=== PATIENT | male | born 1950 | race African-American/Black ===

== ENCOUNTER → 2016-11-10 | Outpatient (CLI) | payer OTHER, MEDICAID ==
[~2016-11-10] MED LIST: ASPI81TA2 PO; DOCU250C91 PO; FENO135C4 PO; FINA5TAB41 PO; LISI-622 PO; MELO-273 PO; METF500T4 PO; MOME17N NASAL; TRAM50TA4 PO; VITAD1000 PO
== END | disposition home or self-care (01) ==
LOC: RADPV 11:32
PROVIDERS: ATTEND Specialist
DX: M25.512 Pain in left shoulder (principal)

== ENCOUNTER 2017-04-30 10:41 | Emergency (ER) | payer OTHER, MEDICAID ==
[~2017-04-30] VITALS: Ht 188 cm; Wt 93.5 kg
[2017-04-30 10:48] VITALS: BP 130/87
[2017-04-30 10:57] LABS: GLUCOSE,POINT OF CARE 109 MG/DL (70-110)
== END 2017-04-30 12:26 | disposition home or self-care (01) ==
LOC: EMS 10:43
DX: L30.9 Dermatitis, unspecified (principal); R79.89 Other specified abnormal findings of blood chemistry; B19.20 Unspecified viral hepatitis C without hepatic coma; E11.9 Type 2 diabetes mellitus without complications; G89.29 Other chronic pain; F17.210 Nicotine dependence, cigarettes, uncomplicated; I10 Essential (primary) hypertension; Z79.82 Long term (current) use of aspirin; Z88.8 Allergy status to other drugs, medicaments and biological substances
CPT/HCPCS: 82962; 99283

== ENCOUNTER 2024-02-09 14:26 | Emergency (ER) | payer OTHER ==
[~2024-02-09] VITALS: Ht 185.4 cm; Wt 93.2 kg
[~2024-02-09 14:26] MED LIST changes: +ASPI-1198 PO; -ASPI81TA2 PO; +CHOL100018 PO; -DOCU250C91 PO; -FENO135C4 PO; +FINA-27 PO; -FINA5TAB41 PO; -LISI-622 PO; +LISI5TAB21 PO; +MELO-107 PO; -MELO-273 PO; +METF-1211 PO; -METF500T4 PO; +OXYB5TAB20 PO; -TRAM50TA4 PO; +TRAM50TA5 PO; -VITAD1000 PO
[2024-02-09 14:32] VITALS: TEMP 98.2
[2024-02-09] MEDS ORDERED: TAMS0.4C94 PO (14:38)
[2024-02-09] MEDS ORDERED: ATOR20TA65 PO (14:38)
[2024-02-09 19:00] VITALS: BP 136/66; PULSE 89; RESP 16
[2024-02-09] MEDS ORDERED: METH-659 PO (19:12)
[2024-02-09] MEDS ORDERED: ACET-66 PO (19:12)
[2024-02-09] MEDS ORDERED: BETA15OI TP (19:15)
[2024-02-09] MEDS: METHOCARBAMOL 500 MG TABLET PO ONE (19:31)
== END 2024-02-09 19:42 | disposition home or self-care (01) ==
LOC: EMS 14:37
DX: M62.838 Other muscle spasm (principal); M19.90 Unspecified osteoarthritis, unspecified site; E11.9 Type 2 diabetes mellitus without complications; F17.210 Nicotine dependence, cigarettes, uncomplicated; Z98.890 Other specified postprocedural states; Z91.040 Latex allergy status; Z91.013 Allergy to seafood
CPT/HCPCS: 82962; 99283